=== PATIENT | female | born 1970 | race Caucasian/White ===

== ENCOUNTER → 2016-12-24 | Outpatient (CLI) | payer OTHER | LOC: FIMAGING 07:19 | PROVIDERS: ATTEND Urology | DX: N20.0 Calculus of kidney (principal) ==

== ENCOUNTER → 2017-02-02 | Outpatient (CLI) | payer OTHER | LOC: FIMAGING 13:53 | PROVIDERS: ATTEND Orthopaedic Surgery Hand Surgery | DX: M25.512 Pain in left shoulder (principal); R60.0 Localized edema ==

== ENCOUNTER → 2017-03-19 | Outpatient (CLI) | payer OTHER | LOC: FIMAGING 07:49 | PROVIDERS: ATTEND Allergy & Immunology Allergy | DX: Z12.31 Encounter for screening mammogram for malignant neoplasm of breast (principal) | CPT/HCPCS: G0202 ==

== ENCOUNTER → 2017-07-17 | Outpatient (CLI) | payer OTHER | LOC: FIMAGING 07:08 | PROVIDERS: ATTEND Urology | DX: N20.0 Calculus of kidney (principal); I87.8 Other specified disorders of veins ==

== ENCOUNTER → 2017-09-08 | Outpatient (CLI) | payer OTHER | LOC: FIMAGING 14:43 | PROVIDERS: ATTEND Allergy & Immunology Allergy | DX: Z13.820 Encounter for screening for osteoporosis (principal); M85.80 Other specified disorders of bone density and structure, unspecified site; Z78.0 Asymptomatic menopausal state ==

== ENCOUNTER → 2018-01-16 | Outpatient (CLI) | payer OTHER | LOC: FIMAGING 06:58 | PROVIDERS: ATTEND Urology | DX: N20.0 Calculus of kidney (principal) ==

== ENCOUNTER → 2018-03-20 | Outpatient (CLI) | payer OTHER | LOC: FIMAGING 07:17 | PROVIDERS: ATTEND Allergy & Immunology Allergy | DX: Z12.31 Encounter for screening mammogram for malignant neoplasm of breast (principal) ==

== ENCOUNTER → 2018-10-15 | Outpatient (CLI) | payer OTHER | LOC: BMCIMAGING 09:25 | PROVIDERS: ATTEND Allergy & Immunology Allergy | DX: R91.8 Other nonspecific abnormal finding of lung field (principal); M41.85 Other forms of scoliosis, thoracolumbar region ==

== ENCOUNTER 2018-11-25 13:03 | Emergency (ER) | payer OTHER ==
--- NOTE | 2018-11-25 13:55 | EDPHY ---
H & P Smoking Status: Never smoked Time Seen by Provider: 11/25/18 13:55 HPI/ROS: Chief complaint. Dizziness HPI. Patient is a 48-year-old female presents emergency department with 2 day history of spinning type dizziness when she is lying down. Really not when standing or walking though she feels somewhat off balance. She had a similar episode 1 month ago and it lasted 1 day and resolved. She has had no recent URI symptoms. No fever. Occasional ringing in her ears. No nausea or vomiting. No chest pain, abdominal pain, shortness of breath. No recent head injury. Denies focal weakness or paresthesias. ROS 10 systems were reviewed and negative with the exception of the elements mentioned in the history of present illness (Hallie Quintero) Past Medical/Surgical History: Asthma (Hallie Quintero) Social History: , nonsmoker, no alcohol (Hallie Quintero) Physical Exam: General Appearance: Alert pleasant well-developed female mild distress vital signs are stay Eyes: Pupils equal and round no pallor or injection. No nystagmus ENT, tympanic membranes normal. Pharynx without injection. Respiratory: There are no retractions, lungs are clear to auscultation. Cardiovascular: Regular rate and rhythm. Gastrointestinal: Abdomen is soft and nontender, no masses, bowel sounds normal. Neurological: Awake and alert, sensory and motor exams grossly normal. Speech is normal. Cranial nerves are normal. There is no pronator drift. Finger-to- nose [id number] bilaterally. Skin: Warm and dry, no rashes. Musculoskeletal: Neck is supple nontender. Extremities symmetrical, full range of motion. Psychiatric: Patient is oriented X 3, there is no agitation. (Hallie Quintero) Constitutional: Initial Vital Signs Temperature (C) 36.5 C 11/25/18 13:13 Heart Rate 93 11/25/18 13:13 Respiratory Rate 18 11/25/18 13:13 Blood Pressure 137/94 H 11/25/18 13:13 O2 Sat (%) 97 11/25/18 13:13 O2 Delivery Mode Room Air Allergies/Adverse Reactions: lisinopril [Lisinopril] Allergy (Severe, Verified 11/25/18 13:11) TONGUE SWELLING iodine [Iodine] Allergy (Mild, Verified 11/25/18 13:11) voriconazole Allergy (Verified 11/25/18 14:26) zileuton [From Zyconstanceo] Allergy (Verified 11/25/18 14:26) Home Medications: Medication Instructions Recorded ALPRAZOLAM [Alprazolam ER 0.5 mg] 0.25 mg PO BID 03/14/13 Albuterol Hfa Anes Only [Proair 2 puffs IH QID 03/14/13 Hfa Anes Only] Albuterol Sulfate [Accuneb] 0.63 mg IH 03/14/13 Desloratadine [Clarinex] 5 mg PO 03/14/13 ESTRADIOL ACETATE [Femring] 1 each VG 03/14/13 Fluocinolone Acetonide Oil 20 ml OT 03/14/13 [Dermotic] Lurasidone HCl [Latuda] 20 mg PO 03/14/13 Mometasone Furoate Nasal [Nasonex] 2 sprays NASAL DAILY 03/14/13 Mometasone/Formoterol [Dulera 200 13 gm IH 03/14/13 Mcg/5 Mcg Inhaler] OLOPATADINE HCL [Patanase] 30.5 gm NS 03/14/13 Olopatadine HCl [Pataday] 2.5 ml OP 03/14/13 POTASSIUM CHLORIDE [K-Funmi] 10 meq PO 03/14/13 Pantoprazole Sodium [Protonix] 40 mg PO 03/14/13 Pimecrolimus [Elidel 1%] 30 lizzy TP 03/14/13 Prednisone [Sterapred Ds] 10 mg PO 03/14/13 Simvastatin [Zocor 20 mg (RX)] 20 mg PO DAILY18 03/14/13 Valsartan [Diovan 80MG (RX)] 80 mg PO 03/14/13 Xolair 03/14/13 epINEPHrine [Epipen] 0.3 mg IM 03/14/13 Clonidine 11/25/18 Meclizine HCl [Meclizine HCl 25 mg 25 mg PO BID #20 tab 11/25/18 (RX,OTC)] Rosuvastatin Calcium 11/25/18 Spironolactone 11/25/18 Xopenex 11/25/18 Medical Decision Making - Diagnostics EKG Interpretation: EKG interpreted by me shows normal sinus rhythm with normal interval and axis. QRS is normal there is no significant ST elevation or depression. No arrhythmia. The rate is 84 (Ingrid,Hallie S) Imaging Results: Imaging Impressions Brain MRI 11/25/18 14:15 Impression: Normal MRI of the brain without and with contrast. Findings and recommendations discussed with Emergency Department physician, HALLIE QUINTERO at 16:02 hour, 11/25/2018. Final report concurs with initial preliminary interpretation. Procedures: IV normal saline. Meclizine orally (Hallie Quintero) ED Course/Re-evaluation: Patient remained stable (Hallie Quintero) 4:55 p.m. We discussed the MRI results. The patient states that she feels much better after meclizine. She is requesting a prescription for this. We discussed typical precautions as well as suspected mechanism for her symptoms. We also discussed follow up with ENT. (Lan Lam) Differential Diagnosis: This is likely vertigo. I concerned about CVA and tumor (Hallie Quintero) Care Turn Over: Care to Dr. Lam at 3:00 p.m. (Hallie Quintero) - Data Points Laboratory Results: Laboratory Results 11/25/18 14:02 11/25/18 14:02 11/25/18 11/25/18 14:02 14:02 WBC 12.21 10^3/uL H 10^3/uL (3.80-9.50) RBC 6.08 10^6/uL H 10^6/uL (4.18-5.33) Hgb 18.8 g/dL H g/dL (12.6-16.3) Hct 53.9 % H % (38.0-47.0) MCV 88.7 fL fL (81.5-99.8) MCH 30.9 pg pg (27.9-34.1) MCHC 34.9 g/dL g/dL (32.4-36.7) RDW 13.1 % % (11.5-15.2) Plt Count 257 10^3/uL 10^3/uL (150-400) MPV 10.0 fL fL (8.7-11.7) Neut % (Auto) 74.5 % H % (39.3-74.2) Lymph % (Auto) 16.7 % % (15.0-45.0) [place] % (Auto) 7.2 % % (4.5-13.0) Eos % (Auto) 0.1 % L % (0.6-7.6) Baso % (Auto) 0.7 % % (0.3-1.7) Nucleat RBC Rel Count 0.0 % % (0.0-0.2) Absolute Neuts (auto) 9.10 10^3/uL H 10^3/uL (1.70-6.50) Absolute Lymphs (auto) 2.04 10^3/uL 10^3/uL (1.00-3.00) Absolute Monos (auto) 0.88 10^3/uL H 10^3/uL (0.30-0.80) Absolute Eos (auto) 0.01 10^3/uL L 10^3/uL (0.03-0.40) Absolute Basos (auto) 0.08 10^3/uL 10^3/uL (0.02-0.10) Absolute Nucleated RBC 0.00 10^3/uL 10^3/uL (0-0.01) Immature Gran % 0.8 % % (0.0-1.1) Immature Gran # 0.10 10^3/uL 10^3/uL (0.00-0.10) Sodium 136 mEq/L mEq/L (135-145) Potassium 4.2 mEq/L mEq/L (3.5-5.2) Chloride 105 mEq/L mEq/L (97-110) Carbon Dioxide 21 mEq/l L mEq/l (22-31) Anion Gap 10 mEq/L mEq/L (6-14) BUN 10 mg/dL mg/dL (7-23) Creatinine 0.8 mg/dL mg/dL (0.6-1.0) Estimated GFR > 60 Glucose 85 mg/dL mg/dL (70-100) Calcium 9.7 mg/dL mg/dL (8.5-10.4) Medications Given: Discontinued Medications Sodium Chloride (Ns) 1,000 mls @ 0 mls/hr IV EDNOW ONE; Wide Open PRN Reason: Protocol Stop: 11/25/18 14:15 Last Admin: 11/25/18 14:33 Dose: 1,000 mls Lorazepam (Ativan) 1 mg PO EDNOW ONE Stop: 11/25/18 14:15 Last Admin: 11/25/18 14:25 Dose: 1 mg Meclizine HCl (Meclizine Hcl) 25 mg PO EDNOW ONE Stop: 11/25/18 14:15 Last Admin: 11/25/18 14:25 Dose: 25 mg Departure - Departure Disposition: Home, Routine, Self-Care Clinical Impression: Vertigo Condition: Fair Instructions: Vertigo (ED) Referrals: Hilary Reeves MD [Primary Care Provider] - As per Instructions Yolande Bradford PA [Physician Stripping Machine Operator] - 2-3 days, if not improved Prescriptions: Meclizine HCl [Meclizine HCl 25 mg (RX,OTC)] 25 mg PO BID #20 tab
[2018-11-25] MEDS ORDERED: LORazepam 1 MG TAB PO ONE (14:14)
[2018-11-25] MEDS ORDERED: NS 1,000 ML IV ONE (14:14)
[2018-11-25] MEDS ORDERED: MECLIZINE HCL 25 MG TAB PO ONE (14:14)
[2018-11-25 14:45] LABS: PLATELET COUNT 257 10^3/uL (150-400)
[2018-11-25] MEDS ORDERED: GADOBUTROL 10 ML VIAL IVP ONE (15:21)
--- NOTE | 2018-11-25 16:09 | CPEKG ---
Test Reason : OPEN Blood Pressure : / mmHG Vent. Rate : 084 BPM Atrial Rate : 087 BPM P-R Int : 137 ms QRS Dur : 083 ms QT Int : 376 ms P-R-T Axes : 056 019 036 degrees QTc Int : 445 ms Sinus rhythm Confirmed by Lee Quintero ([id number]) on 11/25/2018 4:08:28 PM Referred By: Lee Quintero Confirmed By:Lee Quintero
[2018-11-25 16:34] VITALS: BP 135/86
== END 2018-11-25 17:05 | disposition home or self-care (01) ==
DX: R42 Dizziness and giddiness (principal); E86.9 Volume depletion, unspecified
CPT/HCPCS: A9585

== ENCOUNTER → 2018-11-25 | Outpatient (CLI) | payer OTHER | LOC: FIMAGING 08:26 → EDSTATUS 08:27 | PROVIDERS: ATTEND Urology | DX: N20.0 Calculus of kidney (principal) ==

== ENCOUNTER → 2019-01-07 | Outpatient (CLI) | payer OTHER | LOC: BMCIMAGING 09:22 | PROVIDERS: ATTEND Allergy & Immunology Allergy | DX: M54.2 Cervicalgia (principal); M50.30 Other cervical disc degeneration, unspecified cervical region ==

== ENCOUNTER → 2019-01-13 | Outpatient (CLI) | payer OTHER | LOC: FIMAGING 07:03 | PROVIDERS: ATTEND Physician Assistant | DX: K57.81 Diverticulitis of intestine, part unspecified, with perforation and abscess with bleeding (principal); K82.4 Cholesterolosis of gallbladder; N28.1 Cyst of kidney, acquired ==

== ENCOUNTER → 2019-01-25 | Outpatient (CLI) | payer OTHER | LOC: FIMAGING 07:55 | PROVIDERS: ATTEND Urology | DX: N20.0 Calculus of kidney (principal) ==

== ENCOUNTER → 2019-02-04 | Outpatient (CLI) | payer OTHER | LOC: BMCIMAGING 09:40 | PROVIDERS: ATTEND Allergy & Immunology Allergy | DX: R07.89 Other chest pain (principal); I10 Essential (primary) hypertension ==

== ENCOUNTER 2019-03-11 07:18 | Day surgery (SDC) | payer OTHER | END 2019-03-11 13:34 | disposition home or self-care (01) | LOC: FSGY 07:18 ==

== ENCOUNTER → 2019-03-26 | Outpatient (CLI) | payer OTHER | LOC: FIMAGING 07:36 ==

== ENCOUNTER → 2019-04-02 | Outpatient (CLI) | payer OTHER | LOC: FIMAGING 13:15 ==